=== PATIENT | male | born 1975 | race African-American/Black ===

== ENCOUNTER 2019-11-06 07:24 | Emergency (ER) | payer MEDICAID ==
[~2019-11-06] VITALS: Ht 177.8 cm; Wt 86.2 kg
[2019-11-06] MEDS ORDERED: KETOROLAC TROMETH 60MG/2ML VIAL IM ONE (08:15)
[2019-11-06 08:23] LABS: Basophils # (auto) 0.1 uL; Basophils % (auto) 1.3 % (0.0-2.0); Eosinophils # (auto) 0.1 uL; Eosinophils % (auto) 1.2 % (0.0-7.0); Hematocrit 44.7 % (41.0-53.0); Hemoglobin 14.9 g/dL (13.5-17.5); Lymphocytes # (auto) 2.4 uL; Lymphocytes % (auto) 42.9 % (10.0-50.0); Mean Corpuscular Hemoglobin 28.1 pg (28.0-32.0); Mean Corpuscular Hgb Conc. 33.4 g/dL (32.0-36.0); Mean Corpuscular Volume 84.2 fL (80.0-100.0); Monocytes # (auto) 0.4 uL; Monocytes % (auto) 7.5 % (0.0-12.0); Neutrophils # (auto) 2.6 uL; Neutrophils % (auto) 47.1 % (37.0-80.0); Nucleated Red Blood Cells % 0.2 %; Platelet Count (auto) 280 10^3/uL (140-450); Red Blood Cells 5.31 10^6/uL (4.5-5.90); Red Cell Distribution Width 13.9 % (11.8-14.3); White Blood Cell 5.5 10^3/uL (4.4-10.8)
[2019-11-06 08:25] LABS: Urine Bacteria NONE SEEN /hpf (None Seen); Urine Blood Negative /uL (Negative); Urine Mucus FEW (None Seen); Urine Specific Gravity 1.023 (1.001-1.035); Urine WBC 1 /hpf (0 - 3)
[2019-11-06 08:39] LABS: Calcium 8.9 mg/dL (8.5-10.1); Potassium 4.1 mmol/L (3.5-5.1)
[2019-11-06 08:45] LABS: BUN/Creatinine Ratio 14.1
[2019-11-06] MEDS ORDERED: SODIUM CHLORIDE 0.9% 2,000 ML IV ONE (09:15)
[2019-11-06 10:45] VITALS: BP 122/68
== END 2019-11-06 11:02 | disposition home or self-care (01) ==
LOC: ER 07:24
DX: M43.6 Torticollis (principal); M62.82 Rhabdomyolysis; F12.10 Cannabis abuse, uncomplicated; Z88.1 Allergy status to other antibiotic agents
CPT/HCPCS: 36415; 80048; 81001; 82550; 85025; 96372; 99283; J1885; J7030